=== PATIENT | male | born 1995 | race Caucasian/White ===

== ENCOUNTER 2024-03-10 21:05 | Inpatient (IN) | payer OTHER ==
[2024-03-10 22:28] VITALS: BMI 26.4
[2024-03-10] MEDS ORDERED: ONDANSETRON *ODT* 4 MG TABLET SL PRN (22:32)
[2024-03-10] MEDS ORDERED: BENZONATATE 200 MG CAPSULE PO PRN (22:32)
[2024-03-10] MEDS ORDERED: NALOXONE HCL 0.4 MG/ML VIAL IM PRN (22:32)
[2024-03-10] MEDS ORDERED: LOPERAMIDE HCL 2 MG CAPSULE PO PRN (22:32)
[2024-03-10] MEDS ORDERED: IBUPROFEN 400 MG TABLET (FP) PO PRN (22:32)
[2024-03-10] MEDS ORDERED: MAG HYDROX/AL HYDROX/SIMETH 30 ML UNIT-DOSE CUP PO PRN (22:32)
[2024-03-10] MEDS ORDERED: ACETAMINOPHEN 325 MG TABLET (FP) PO PRN (22:32)
[2024-03-10] MEDS ORDERED: DICYCLOMINE HCL 10 MG CAPSULE PO PRN (22:32)
[2024-03-10] MEDS ORDERED: guaiFENesin 600 MG TABLET.ER (FP) PO PRN (22:32)
[2024-03-10] MEDS ORDERED: POLYETHYLENE GLYCOL (HEALTHYLAX) 3350 17 GM PACKET PO PRN (22:32)
[2024-03-10] MEDS ORDERED: MAGNESIUM HYDROX 2400MG/30ML ORAL SUSPENSION 30 ML CUP PO PRN (22:32)
[2024-03-10] MEDS ORDERED: NALOXONE (NARCAN) HCL 4 MG/0.1 ML SPRAY NS PRN (22:32)
[2024-03-10] MEDS ORDERED: BISMUTH SUBSALICYLATE 524 MG/30 ML PO PRN (22:32)
[2024-03-10] MEDS ORDERED: BENZOCAINE/MENTHOL (CHLORASEPTIC ) LOZENGE MM PRN (22:32)
[2024-03-10] MEDS ORDERED: chlordiazePOXIDE HCL 25 MG CAPSULE ONE (22:54)
[2024-03-10] MEDS: chlordiazePOXIDE HCL 25 MG CAPSULE PO SCH (22:56)
[2024-03-10] MEDS: IBUPROFEN 600 MG TABLET (FP) PO PRN (23:48)
[2024-03-10] MEDS: CEPHALEXIN MONOHYDRATE 500 MG CAPSULE (UD) PO SCH (23:48)
[2024-03-11] MEDS: PRENATAL VITAMINS W/ FOLIC ACID TABLET (FP) PO SCH (10:16)
[2024-03-11] MEDS: NICOTINE 14 MG/24 HOURS TOPICAL PATCH TD SCH (10:16)
[2024-03-11] MEDS: BACITRACIN 0.9 GM PACKET TP SCH (10:16)
[2024-03-11 12:07] LABS: HEMATOCRIT 37.1 % (35.4-49); HEMOGLOBIN 12.5 GM/dL (11.7-16.9); MCH 32.4 pg (25.7-33.7); MCHC 33.7 g/dl (32.0-35.9); MEAN CELL VOLUME 96.2 fl (80-96); MEAN PLT VOLUME 7.4 fl (7.5-11.1); PLATELET COUNT 212 10^3/uL (134-434); RBC 3.86 M/mm3 (4.00-5.60); RDW 14.9 % (11.9-15.9); WHITE BLOOD COUNT 3.7 K/mm3 (4.0-10.0)
[2024-03-11 12:10] LABS: POTASSIUM 3.9 mmol/L (3.5-5.1)
[2024-03-11 12:35] LABS: ALBUMIN 3.2 g/dl (3.4-5.0); BLOOD UREA NITROGEN 9.7 mg/dL (7-18); CALCIUM 8.7 mg/dL (8.5-10.1)
[2024-03-11 12:38] LABS: CREATININE 0.6 mg/dL (0.55-1.3)
[2024-03-11 12:39] LABS: TOT PROT 6.1 g/dl (6.4-8.2)
[2024-03-11 12:41] LABS: BILIRUBIN,TOTAL 0.5 mg/dL (0.2-1)
[2024-03-11 13:54] LABS: HIV INTERPRETATION NEGATIVE (NEGATIVE)
[2024-03-11] MEDS: NICOTINE POLACRILEX 2 MG LOZENGE BC PRN (20:05)
[2024-03-11] MEDS: METHOCARBAMOL 500 MG TABLET PO PRN (22:57)
[2024-03-11] MEDS: MELATONIN 5 MG TABLETS PO SCH (22:57)
[2024-03-11] MEDS: THIAMINE 100 MG TABLET PO SCH (22:57)
[2024-03-12] MEDS: chlordiazePOXIDE HCL 25 MG CAPSULE PO SCH (05:37)
[2024-03-12] MEDS: chlordiazePOXIDE HCL 25 MG CAPSULE PO PRN (14:36)
[2024-03-13] MEDS ORDERED: chlordiazePOXIDE HCL 10 MG CAPSULE PO PRN
[2024-03-13] MEDS: chlordiazePOXIDE HCL 10 MG CAPSULE PO SCH (05:35)
[2024-03-13 10:02] VITALS: BP 102/61; PULSE 60; RESP 17; TEMP 97.7
[2024-03-13] MEDS: hydrOXYzine PAMOATE 25 MG CAPSULE (FP) PO PRN (10:11)
[2024-03-14] MEDS ORDERED: chlordiazePOXIDE HCL 10 MG CAPSULE PO SCH (05:00)
[2024-03-15] MEDS ORDERED: chlordiazePOXIDE HCL 10 MG CAPSULE PO ONE (05:00)
== END 2024-03-13 13:02 | disposition home or self-care (01) | DRG 775 ==
LOC: YASAS 21:05 → Y3N 23:12
PROVIDERS: ADMIT Allergy & Immunology; ATTEND Surgery
PROC: HZ2ZZZZ Detoxification Services for Substance Abuse Treatment (ICD-10-PCS; principal; 2024-03-10)
DX: F10.230 Alcohol dependence with withdrawal, uncomplicated (principal); F17.210 Nicotine dependence, cigarettes, uncomplicated; F41.9 Anxiety disorder, unspecified; F90.9 Attention-deficit hyperactivity disorder, unspecified type; J45.20 Mild intermittent asthma, uncomplicated; Z91.199 Patient's noncompliance with other medical treatment and regimen due to unspecified reason; Z59.00 Homelessness unspecified; Z56.0 Unemployment, unspecified
CPT/HCPCS: 36415; 80053; 80305; 80307; 85027; 86780; 87389; 93005; 93010

== ENCOUNTER 2024-03-21 22:36 | Inpatient (IN) | payer OTHER ==
[2024-03-21 23:03] VITALS: BMI 26.3
[2024-03-21] MEDS ORDERED: BISMUTH SUBSALICYLATE 524 MG/30 ML PO PRN (23:57)
[2024-03-21] MEDS ORDERED: DICYCLOMINE HCL 10 MG CAPSULE PO PRN (23:57)
[2024-03-21] MEDS ORDERED: NALOXONE (NARCAN) HCL 4 MG/0.1 ML SPRAY NS PRN (23:57)
[2024-03-21] MEDS ORDERED: ACETAMINOPHEN 325 MG TABLET (FP) PO PRN (23:57)
[2024-03-21] MEDS ORDERED: POLYETHYLENE GLYCOL (HEALTHYLAX) 3350 17 GM PACKET PO PRN (23:57)
[2024-03-21] MEDS ORDERED: LOPERAMIDE HCL 2 MG CAPSULE PO PRN (23:57)
[2024-03-21] MEDS ORDERED: BENZONATATE 200 MG CAPSULE PO PRN (23:57)
[2024-03-21] MEDS ORDERED: BENZOCAINE/MENTHOL (CHLORASEPTIC ) LOZENGE MM PRN (23:57)
[2024-03-21] MEDS ORDERED: guaiFENesin 600 MG TABLET.ER (FP) PO PRN (23:57)
[2024-03-21] MEDS ORDERED: IBUPROFEN 400 MG TABLET (FP) PO PRN (23:57)
[2024-03-21] MEDS ORDERED: MAGNESIUM HYDROX 2400MG/30ML ORAL SUSPENSION 30 ML CUP PO PRN (23:57)
[2024-03-21] MEDS ORDERED: MAG HYDROX/AL HYDROX/SIMETH 30 ML UNIT-DOSE CUP PO PRN (23:57)
[2024-03-21] MEDS ORDERED: NALOXONE HCL 0.4 MG/ML VIAL IM PRN (23:57)
[2024-03-22] MEDS: chlordiazePOXIDE HCL 25 MG CAPSULE PO SCH ×2 (01:09→05:37)
[2024-03-22] MEDS ORDERED: chlordiazePOXIDE HCL 25 MG CAPSULE ONE (01:39)
[2024-03-22] MEDS: chlordiazePOXIDE HCL 25 MG CAPSULE PO PRN (01:40)
[2024-03-22] MEDS: hydrOXYzine PAMOATE 25 MG CAPSULE (FP) PO PRN (10:09)
[2024-03-22] MEDS: NICOTINE 14 MG/24 HOURS TOPICAL PATCH TD SCH (10:09)
[2024-03-22] MEDS: PRENATAL VITAMINS W/ FOLIC ACID TABLET (FP) PO SCH (10:09)
[2024-03-22 10:45] LABS: HEMATOCRIT 36.1 % (35.4-49); HEMOGLOBIN 12.7 GM/dL (11.7-16.9); MCH 33.5 pg (25.7-33.7); MCHC 35.3 g/dl (32.0-35.9); MEAN PLT VOLUME 7.1 fl (7.5-11.1); PLATELET COUNT 204 10^3/uL (134-434); RDW 14.3 % (11.9-15.9); WHITE BLOOD COUNT 4.6 K/mm3 (4.0-10.0)
[2024-03-22 10:46] LABS: POTASSIUM 3.3 mmol/L (3.5-5.1)
[2024-03-22 10:50] LABS: CALCIUM 8.3 mg/dL (8.5-10.1)
[2024-03-22 10:51] LABS: ALBUMIN 3.1 g/dl (3.4-5.0); BLOOD UREA NITROGEN 7.6 mg/dL (7-18)
[2024-03-22 10:54] LABS: CREATININE 0.7 mg/dL (0.55-1.3)
[2024-03-22 10:56] LABS: BILIRUBIN,TOTAL 1.2 mg/dL (0.2-1); TOT PROT 6.1 g/dl (6.4-8.2)
[2024-03-22] MEDS: ONDANSETRON *ODT* 4 MG TABLET SL PRN (12:01)
[2024-03-22] MEDS: chlordiazePOXIDE HCL 25 MG CAPSULE PO ONE (12:24)
[2024-03-22] MEDS ORDERED: POTASSIUM CHLORIDE ORAL LIQUID 20 MEQ/15 ML PO SCH ×2 (18:30→19:00)
[2024-03-22] MEDS: POTASSIUM CHLORIDE ORAL LIQUID 20 MEQ/15 ML PO SCH (18:55)
[2024-03-22] MEDS: NALTREXONE HCL 50 MG TABLET PO SCH (18:55)
[2024-03-22] MEDS: NICOTINE POLACRILEX 2 MG LOZENGE BC PRN (20:02)
[2024-03-22] MEDS: MELATONIN 5 MG TABLETS PO SCH (22:18)
[2024-03-22] MEDS: THIAMINE 100 MG TABLET PO SCH (22:18)
[2024-03-22] MEDS: IBUPROFEN 600 MG TABLET (FP) PO PRN (22:22)
[2024-03-23] MEDS ORDERED: chlordiazePOXIDE HCL 10 MG CAPSULE PO PRN
[2024-03-23] MEDS: chlordiazePOXIDE HCL 10 MG CAPSULE PO SCH (05:23)
[2024-03-23] MEDS: METHOCARBAMOL 500 MG TABLET PO PRN (09:25)
[2024-03-23] MEDS: POTASSIUM CHLORIDE ORAL LIQUID 20 MEQ/15 ML PO ONE (09:25)
[2024-03-23] MEDS: NICOTINE POLACRILEX 2 MG GUM BUC PRN (19:17)
[2024-03-24] MEDS: chlordiazePOXIDE HCL 10 MG CAPSULE PO SCH (05:27)
[2024-03-24 06:09] VITALS: RESP 16
[2024-03-24 12:45] VITALS: BP 124/92; PULSE 83; TEMP 97.1
[2024-03-25] MEDS ORDERED: chlordiazePOXIDE HCL 10 MG CAPSULE PO ONE (05:00)
== END 2024-03-24 14:15 | disposition home or self-care (01) | DRG 775 ==
LOC: YASAS 22:36 → Y6N 03-22 01:46
PROVIDERS: ADMIT Allergy & Immunology; ATTEND Allergy & Immunology
PROC: HZ2ZZZZ Detoxification Services for Substance Abuse Treatment (ICD-10-PCS; principal; 2024-03-22)
DX: F10.230 Alcohol dependence with withdrawal, uncomplicated (principal); F12.20 Cannabis dependence, uncomplicated; F17.210 Nicotine dependence, cigarettes, uncomplicated; F41.9 Anxiety disorder, unspecified; F32.A Depression, unspecified; E87.6 Hypokalemia; J45.20 Mild intermittent asthma, uncomplicated
CPT/HCPCS: 36415; 80053; 80305; 80307; 84132; 85027; 86780; 93005; 93010; Q0162